=== PATIENT | female | born 1950 | race Caucasian/White ===

== ENCOUNTER 2016-04-03 11:48 | Emergency (ER) | payer OTHER, BC | END 2016-04-03 15:00 | disposition home or self-care (01) | LOC: ER 11:48 | DX: S39.012A Strain of muscle, fascia and tendon of lower back, initial encounter (principal); V43.53XA Car driver injured in collision with pick-up truck in traffic accident, initial encounter; Y92.410 Unspecified street and highway as the place of occurrence of the external cause; R51 Headache; I10 Essential (primary) hypertension; I48.91 Unspecified atrial fibrillation; Z79.82 Long term (current) use of aspirin | CPT/HCPCS: 70450; 72072; 72100 ==